=== PATIENT | male | born 1975 ===

== ENCOUNTER 2017-03-06 21:05 | Emergency (ER) | payer OTHER ==
[2017-03-06] MEDS ORDERED: ZOLOFT100 M1 PO (21:30)
[2017-03-06] MEDS ORDERED: FLONASE ALLERG9.9 ML (21:30)
[2017-03-06] MEDS ORDERED: VENTOLIN HFA18 G2 PO (21:31)
[2017-03-06] MEDS ORDERED: PERCOCET 5-3251 EACH PO (23:48)
== END 2017-03-07 00:50 ==
LOC: EDMED 21:05
PROC: 2W3LX1Z Immobilization of Right Lower Extremity using Splint (ICD-10-PCS; principal; 2017-03-06)
DX: S92.061A Displaced intraarticular fracture of right calcaneus, initial encounter for closed fracture (principal); W11.XXXA Fall on and from ladder, initial encounter; Y92.009 Unspecified place in unspecified non-institutional (private) residence as the place of occurrence of the external cause
CPT/HCPCS: J1170